=== PATIENT | female | born 1940 | race Caucasian/White ===

== ENCOUNTER 2021-08-18 08:15 | Emergency (ER) | payer MEDICARE, SELFPAY ==
[~2021-08-18] VITALS: Ht 165.1 cm; Wt 54.4 kg
[2021-08-18 08:20] VITALS: BP_SYST 175
--- NOTE | 2021-08-18 08:20 | NUR ---
Pt. bib ACLS from home with c/o generalized weakness X 3 days, pt. AAOX4, states she has not been able to sleep for 3 nights denies pain, EMS reported accu check of 481, pt. has shunt to l arm for dialysis, no IV access
--- NOTE | 2021-08-18 08:23 | NUR ---
Patient to ER bed 1 to gown for evaluation. Side rails up. Report given to
--- NOTE | 2021-08-18 08:26 | NUR ---
ER at bedside examining patient.
--- NOTE | 2021-08-18 08:29 | NUR ---
accu check done BS 345
[2021-08-18] MEDS ORDERED: METO50TA16 PO (08:38)
[2021-08-18] MEDS ORDERED: AMIO400T5 PO (08:38)
[2021-08-18] MEDS ORDERED: SEVE800T8 PO (08:41)
[2021-08-18] MEDS ORDERED: CLOP75TA32 PO (08:41)
[2021-08-18] MEDS ORDERED: ASPI-524 PO (08:41)
[2021-08-18] MEDS ORDERED: LIP40 PO (08:41)
[2021-08-18 08:58] LABS: BASOPHILS # (AUTO) 0.1 K/uL (0.0-0.2); BASOPHILS % (AUTO) 0.6 % (0.0-2.0); EOSINOPHILS % (AUTO) 0.1 % (0.0-4.0); HEMATOCRIT 27.1 % (36-48); HEMOGLOBIN 8.9 g/dL (12.0-16.0); LYMPHOCYTES # (AUTO) 1.1 K/uL (1.0-5.5); MEAN CORPUSCULAR HEMOGLOBIN 32 pg (27-31); MEAN CORPUSCULAR HGB CONC 33 % (32-36); MEAN CORPUSCULAR VOLUME 98 fL (79.0-98.0); MONOCYTES # (AUTO) 0.7 K/uL (0.0-1.0); NEUTROPHILS % (AUTO) 86.3 % (40.0-70.0); PLATELET COUNT (AUTO) 269 K/uL (130-430); RED BLOOD CELL COUNT(AUTO) 2.76 MIL/uL (4.2-6.2); WHITE BLOOD COUNT (AUTO) 13.9 K/uL (4.8-10.8)
[2021-08-18 09:21] LABS: ALANINE AMINOTRANSFERASE 19 U/L (12-78); ALBUMIN 2.9 g/dL (3.4-4.8); ANION GAP 11 (5-15); ASPARTATE AMINOTRANSFERASE 44 U/L (10-37); CALCIUM 8.3 mg/dL (8.4-11.0); CHLORIDE 92 mmol/L (98-107); CREATININE 5.21 mg/dL (0.55-1.30); GLUCOSE 374 mg/dL (70-99); POTASSIUM 5.1 mmol/L (3.5-5.1); SODIUM SERUM 126 mmol/L (136-145); TOTAL BILIRUBIN 0.7 mg/dL (0.0-1.0); UREA NITROGEN, BLOOD 64 mg/dL (8-21)
--- NOTE | 2021-08-18 10:17 | NUR ---
UPDATED SON AND PATIENT ON ADMISSION. LIUDMILA TO LAB. PT STABLE VOICES NO COMPLAINTS
--- NOTE | 2021-08-18 11:48 | NUR ---
DR. WEAVER, [facility], CALLED BACK TO SPEAK TO DR. LANGE REGARDING PT STATUS
--- NOTE | 2021-08-18 11:52 | NUR ---
DR LANGE SPEAKING WITH LIZETTE ARTEAGA, FOR POSSIBLE ACCEPTANCE
--- NOTE | 2021-08-18 12:23 | NUR ---
2ND TROPONIN JEANE BY LAB
--- NOTE | 2021-08-18 12:46 | NUR ---
[facility] [address] DR ANDRES NOTIFIED AWAITING ORDERS
[2021-08-18] MEDS ORDERED: INSULIN Lispro 100 UNITS/ML VIAL (humaLOG) SUBCUT ONE (14:30)
--- NOTE | 2021-08-18 16:01 | NUR ---
Patient to be transferred to [facility]. Is being transferred due to higher level of care. Receiving facility has accepting physician and available space. ER physician has signed transfer form. Patient or responsible alliance party has agreed to transfer and signed form. Patient belongings inventoried and will be sent with patient. Copy of nursing notes, lab reports, EKG, Physicians Orders and X-rays to be sent with patient. Report called to AR[place]IA at receiving facility. Receiving physician is DR RIBEIRO. [place] [id number] ambulance service has been called for transfer. ETA is 35. REPORT NUMBER IS [phone]
--- NOTE | 2021-08-18 16:17 | NUR ---
REPORT CALLED TO LIZETTE IZAGUIRRE
[2021-08-18 16:22] VITALS: BP_SYST 121
--- NOTE | 2021-08-18 16:32 | NUR ---
Patient to be transferred to [facility] ED. Is being transferred due to higher level of care. Receiving facility has accepting physician LIEU and available space. ER physician has signed transfer form. Patient or responsible republican has agreed to transfer and signed form. Patient belongings inventoried and will be sent with patient. Copy of nursing notes, lab reports, EKG, Physicians Orders and X-rays to be sent with patient. Report called to [facility]. Receiving physician is LIEU. [facility] ambulance service has been called for transfer.
== END 2021-08-18 16:22 | disposition short-term general hospital (02) ==
LOC: SED 08:15
DX: J18.9 Pneumonia, unspecified organism (principal); R53.1 Weakness; E11.65 Type 2 diabetes mellitus with hyperglycemia; Z79.899 Other long term (current) drug therapy; Z20.822 Contact with and (suspected) exposure to COVID-19
CPT/HCPCS: 36415; 36600; 71045; 80053; 82803; 82962; 83605; 84484; 85025; 87040; 87426; 93005; 96365; 96372; 99285; J1956

== ENCOUNTER 2022-09-14 14:01 | Emergency (ER) | payer MEDICARE, OTHER ==
[~2022-09-14] VITALS: Ht 162.6 cm; Wt 63.5 kg
[~2022-09-14 14:01] MED LIST: AMIO400T5 PO; ASPI-524 PO; CLOP75TA32 PO; LIP40 PO; METO50TA16 PO; SEVE800T8 PO
[2022-09-14 14:04] VITALS: BP_SYST 132
--- NOTE | 2022-09-14 14:30 | NUR ---
Patient transported to CT for code stroke. per EMS report patient LKW 1300 patient was at home found in restroom by family. Patient was taken to HD ( HD sunday, Sunday, Sunday) this am however was sent home do to fistula clotted. patient last recieved HD sunday. b/p on arrival 202/64 HR 65 rr 20 96% O2 ra bs 123. Patient noted to be aox4 gcs 15 with right arm and leg deficit. patient unable to move right arma arma nd leg. patient also stated she takes plavix.
[2022-09-14] MEDS ORDERED: DESMOPRESSIN ACETATE 4 MCG/ML AMP IV ONE (15:00)
[2022-09-14 15:10] LABS: BASOPHILS # (AUTO) 0.1 K/uL (0.0-0.2); BASOPHILS % (AUTO) 0.9 % (0.0-2.0); EOSINOPHILS # (AUTO) 0.1 K/uL (0.0-0.4); EOSINOPHILS % (AUTO) 0.8 % (0.0-4.0); HEMATOCRIT 34.1 % (36-48); HEMOGLOBIN 11.4 g/dL (12.0-16.0); LYMPHOCYTES % (AUTO) 28.4 % (20.5-51.5); MEAN CORPUSCULAR HEMOGLOBIN 35 pg (27-31); MEAN CORPUSCULAR HGB CONC 34 % (32-36); MEAN CORPUSCULAR VOLUME 104 fL (79.0-98.0); MONOCYTES # (AUTO) 0.6 K/uL (0.0-1.0); MONOCYTES % (AUTO) 8.2 % (1.7-9.3); NEUTROPHILS # (AUTO) 4.3 K/uL (1.8-7.7); NEUTROPHILS % (AUTO) 61.7 % (40.0-70.0); PLATELET COUNT (AUTO) 139 K/uL (130-430); RED BLOOD CELL COUNT(AUTO) 3.29 MIL/uL (4.2-6.2); RED CELL DISTRIBUTION WIDTH 13.7 % (9.0-15.0)
[2022-09-14 15:23] LABS: ANION GAP 12 (5-15); CALCIUM 8.8 mg/dL (8.4-11.0); CHLORIDE 96 mmol/L (98-107); GLUCOSE 181 mg/dL (70-99); UREA NITROGEN, BLOOD 91 mg/dL (8-21)
[2022-09-14 15:34] LABS: INR 1.3 (0.8-1.2); PROTHROMBIN TIME 12.6 SECS (9.5-12.5)
[2022-09-14 15:35] LABS: ALANINE AMINOTRANSFERASE 24 U/L (12-78); ALBUMIN 2.7 g/dL (3.4-4.8); ASPARTATE AMINOTRANSFERASE 23 U/L (10-37); TOTAL BILIRUBIN 0.4 mg/dL (0.0-1.0)
[2022-09-14] MEDS ORDERED: niCARdipine 50 MG in D5W 230 ML IV PRN (16:00)
--- NOTE | 2022-09-14 16:07 | NUR ---
FAXED RADIOLOGY REPORTS TO [place]. ATTN: JERI FAX: [phone]
--- NOTE | 2022-09-14 16:10 | NUR ---
report received from ZUHAIR Santana Addendum: 09/14/22 at 1731 by BELKIS Patient has history of ESRD on dialysis T//SUN, HTN, AND DIABETES. PATIENT WAS SEEN AT DIALYSIS AND UNABLT TO BE DIALYZED BECAUSE OF A CLOT IN HER FISTULA. PATIENT WAS INSTRUCTED TO PRESENT TO [place] TOMORROW FOR A PROCEDURE. PATIENT WENT HOME TOOK A SHOWER. AFTER TAKING A SHOWER, VINYL INSTALLER NOTICED SHE HAS HAVING RIGHT ARM AND RIGHT LEG WEAKNESS AT 1300 TODAY. PATIENT HAS NORMAL SENSATION BUT UNABLE TO MOVE EXTREMITIES. PATIENT ABLE TO SPEAK FULL SENTENCES CLEARLY. LUE FISTULA WITH PALPABLE THRILL, AOX4. EKG SHOWED SR AT 66 BPM RIGHT BUNDLE BRANCH BLOCK. CT HEAD SHOWED 2.8 X 1.5 X 2.1 CM LEFT BASAL GANGLIA INTRAPARENCHYMAL HEMORRHAGE WITH 5 MM RIGHT NEWELL MIDLINE SHIFT. CTA WAS NEG. 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 AWAITING DESMOPRESSIN FROM PHARMACY. FAMILY AT BEDSIDE.
[2022-09-14] MEDS ORDERED: iohexoL 350 mgI/mL, 100 ML INFUS..BTL IV ONE (16:11)
--- NOTE | 2022-09-14 17:00 | NUR ---
TRANSFER INFO [facility] ACCEPTING: DR. BLOOD REPORT # TO [facility]: [phone] [id number] SPOKE TO VEENA
--- NOTE | 2022-09-14 17:30 | NUR ---
DR. MARRUFO INFORMED OF BLOOD PRESSURE 122/37. HR OF 69 BPM PER MD TO STOP NICARDIPINE NOW.
--- NOTE | 2022-09-14 17:39 | NUR ---
[facility] ETA 1999 SPOKE TO [place] Addendum: 09/14/22 at 1759 by SDEDSM PT HAS BEEN DOWNGRADED TRANSPORT LEVEL. ETA 1929 SPOKE TO MIC FIGUEROAP
--- NOTE | 2022-09-14 18:08 | NUR ---
Patient to be transferred to [facility] . Is being transferred due to higher level of care. Receiving facility has accepting physician and available space. ER physician has signed transfer form. Patient or responsible alliance party has agreed to transfer and signed form. Patient belongings inventoried and will be sent with patient. Copy of nursing notes, lab reports, EKG, Physicians Orders and X-rays to be sent with patient. Report called to ZUHAIR BARRIGA at receiving facility. Receiving physician is DR. BLOOD [facility] ambulance service has been called for transfer. ETA is 1930
--- NOTE | 2022-09-14 18:12 | NUR ---
FAMILY STATES SHE IS A FULL CODE.
[2022-09-14 19:39] VITALS: BP_SYST 126
== END 2022-09-14 19:39 | disposition short-term general hospital (02) ==
LOC: SED 14:01
DX: I62.9 Nontraumatic intracranial hemorrhage, unspecified (principal); I16.0 Hypertensive urgency; E11.9 Type 2 diabetes mellitus without complications; R20.2 Paresthesia of skin; Z79.899 Other long term (current) drug therapy; Z20.822 Contact with and (suspected) exposure to COVID-19
CPT/HCPCS: 99291; 70496; 96365; 71045; 96375; 87426; 80053; 85025; 85610; 85730; 86886; 86900; 86901; 84484; 36415; 93005; 70498; 70450; 76376; J2597; Q9967; J7060